=== PATIENT | female | born 1975 | race Caucasian/White ===

== ENCOUNTER → 2018-09-06 | Outpatient (CLI) | payer OTHER ==
[~2018-09-06] MED LIST: ACET500; ALBU90OI INH; ALBU90OI61 INH; AXERT; BENZ100A PO; BUPR150T2 PO; CEPH500 PO; CLAR500 PO; CLON1 PO; CLON2 PO; CYCL10 PO; DIVA500ER PO; DOCU100 PO; ERYT.5TO OU; HYDACE5 PO; HYDCOR2.5A PR; IBUP600 PO; KETO.5OPSO RIGHTEYE; MULVITMINE; NAPR500 PO; NAPR500EC PO; NAPR550 PO; OXYACE5T PO; OXYB5 PO; Omeprazole20 M1; Omeprazole20 M1 PO; PENVK500 PO; PROACE100 PO; Pepcid40 MG PO; Prednisone20 MG PO; QUET200 PO; RXPROACE PO; SEROQUEL PO; SERT100; SULTRIDS PO; TRAM50 PO; ZIPR60 PO; [UNRECOGNIZED DRUG - REMARK]; [UNRECOGNIZED DRUG - REMARK]
[2018-09-08 15:08] LABS: HPV 16 Negative (Negative); HPV 18 Negative (Negative); HPV OTHER HR TYPES Negative (Negative)
== END | disposition home or self-care (01) ==
LOC: LAB 16:19 → LAB SHORT 16:19
PROVIDERS: Obstetrics & Gynecology
DX: Z01.419 Encounter for gynecological examination (general) (routine) without abnormal findings (principal)
CPT/HCPCS: 87624; G0123

== ENCOUNTER → 2020-11-04 | Outpatient (CLI) | payer BC, OTHER ==
[2020-11-04 13:33] LABS: BASOPHILS ABSOLUTE AUTO 0.04 K/mm3 (0.00-0.23); BASOPHILS PERCENT AUTO 1 % (0-2); EOSINOPHILS ABSOLUTE AUTO 0.62 K/mm3 (0.00-0.68); EOSINOPHILS PERCENT AUTO 10 % (0-6); Hematocrit 39.4 % (33.0-51.0); Hemoglobin 13.2 g/dL (11.5-16.0); IMMATURE GRAN ABSOLUTE AUTO 0.01 K/mm3 (0.00-0.10); IMMATURE GRAN PERCENT AUTO 0 % (0-1); LYMPHOCYTES ABSOLUTE AUTO 2.43 K/mm3 (0.84-5.20); LYMPHOCYTES PERCENT AUTO 39 % (21-46); MONOCYTES ABSOLUTE AUTO 0.26 K/mm3 (0.16-1.47); MONOCYTES PERCENT AUTO 4 % (4-13); Mean Corpuscular HGB 30.8 pg (26.0-34.0); Mean Corpuscular HGB Conc 33.5 g/dL (31.5-36.5); Mean Corpuscular Volume 92 fL (80-100); Mean Platelet Volume 8.9 fL (9.1-12.4); NEUTROPHILS PERCENT AUTO 46 % (41-73); Platelet Count 274 K/mm3 (150-400); RDW Coefficient Variation 12.7 % (11.7-14.2); RDW Standard Deviation 42.6 fL (35.1-46.3); Red Blood Cell Count 4.29 M/mm3 (3.80-5.20); White Blood Cell Count 6.26 K/mm3 (4.00-11.30)
== END ==
LOC: LAB EV 13:30 → LAB SHORT 13:30
PROVIDERS: Physician Assistant
DX: K92.2 Gastrointestinal hemorrhage, unspecified (principal); Z91.038 Other insect allergy status
CPT/HCPCS: 85025

== ENCOUNTER 2022-02-03 05:51 | Day surgery (SDC) | payer OTHER ==
[2022-02-01 17:12] LABS: BASOPHILS ABSOLUTE AUTO 0.05 K/mm3 (0.00-0.23); BASOPHILS PERCENT AUTO 1 % (0-2); EOSINOPHILS ABSOLUTE AUTO 0.13 K/mm3 (0.00-0.68); EOSINOPHILS PERCENT AUTO 2 % (0-6); Hematocrit 41.1 % (33.0-51.0); Hemoglobin 13.1 g/dL (11.5-16.0); IMMATURE GRAN ABSOLUTE AUTO 0.02 K/mm3 (0.00-0.10); IMMATURE GRAN PERCENT AUTO 0 % (0-1); LYMPHOCYTES PERCENT AUTO 38 % (21-46); MONOCYTES ABSOLUTE AUTO 0.57 K/mm3 (0.16-1.47); MONOCYTES PERCENT AUTO 7 % (4-13); Mean Corpuscular HGB Conc 31.9 g/dL (31.5-36.5); Mean Corpuscular Volume 91 fL (80-100); Mean Platelet Volume 9.5 fL (9.1-12.4); NEUTROPHILS PERCENT AUTO 53 % (41-73); Platelet Count 320 K/mm3 (150-400); RDW Coefficient Variation 13.6 % (11.7-14.2); RDW Standard Deviation 45.8 fL (35.1-46.3); Red Blood Cell Count 4.52 M/mm3 (3.80-5.20); White Blood Cell Count 7.97 K/mm3 (4.00-11.30)
[2022-02-01 18:06] LABS: Alanine Aminotransfer (ALT/SGP 13 U/L (12-78); Albumin, Blood 3.8 g/dL (3.4-5.0); Albumin/Globulin Ratio 1.1 (0.8-1.8); Alk Phos 58 U/L (50-136); Anion Gap 6 mmol/L (6-16); Aspartate Aminotrans (AST/SGOT 11 U/L (12-37); Beta HCG, Quantitative, Serum <1 mIU/mL (0-3); Bilirubin, Total 0.5 mg/dL (0.1-1.0); Blood Urea Nitrogen 15 mg/dL (8-24); Bun/Creatinine Ratio 19.5 (12.0-20.0); CO2, Blood 25 mmol/L (21-32); Calcium, Blood 9.3 mg/dL (8.5-10.1); Chloride, Blood 106 mmol/L (98-108); Creatinine, Blood 0.77 mg/dL (0.40-1.00); Globulin, Blood 3.5 g/dL (2.2-4.0); Glomerular Filtration Rate 97 (60-); Glucose, Blood 90 mg/dL (70-99); Potassium, Blood 3.5 mmol/L (3.5-5.5); Sodium, Blood 137 mmol/L (136-145); Total Protein, Blood 7.3 g/dL (6.4-8.2)
[~2022-02-03] VITALS: Ht 167.6 cm; Wt 58.3 kg
[2022-02-03] MEDS ORDERED: QUET200 PO (06:51)
--- NOTE | 2022-02-03 09:08 | NUR ---
02/03/22 0908 Willy Beckman IRRIGATED WITH 400CC OF NAC[facility] DURING CASE BY NGUYEN
--- NOTE | 2022-02-03 12:23 | NUR ---
PT ARRIVED TO THE UNIT AT APPROXIMATELY 1115. SHE IS DROWSY BUT AWAKENS TO ANSWER QUESTIONS. PT ALSO REPORTS NAUSEA. AFTER PT WAS SETTLED IN THE BED SHE FELL ASLEEP AND APPEARS TO BE RESTING PEACEFULLY. PT TOLERATING SIPS OF CLEARS. ABD DRESSINGS CLEAN AND DRY, BANDAID PRESENT OVER ONE LAP SITE, NO DRAINAGE. WILL CONTINUE TO MONITOR.
--- NOTE | 2022-02-03 19:14 | NUR ---
NAUSEA PT HAS CONTINUED TO HAVE NAUSEA AND VOMITING POST-OP, DESPITE USE OF ZOFRAN AND PHENERGAN. SHE ATTEMPTED SIPS AND CHIPS BUT VOMITS AFTER ANY PO INTAKE. PT ALSO ATTEMPTED TO EAT BREAD WITH DINNE AND VOMITED. DR. NEWMAN NOTIFIED AND ORDERS WERE PROVIDED. WILL CONTINUE TO MONITOR UNTIL REPORT TO NOC RN.
--- NOTE | 2022-02-03 19:51 | NUR ---
SHIFT SUMMARY PT IS POD#0 FROM [facility] WITH DR. NEWMAN. PT HAS CONTINUED TO HAVE NAUSEA AND VOMITING POST OP. PLAN FOR HER TO STAY OVERNIGHT UNLESS NAUSEA AND VOMITING RESOLVE. PAIN MANAGED WITH PO PAIN MEDICATION AND TORADOL. PT ABLE TO VOID AND AMBULATE. VSS. REPORT GIVEN TO STEPHANY RIVERA.
--- NOTE | 2022-02-04 15:47 | NUR ---
DISCHARGE SUMMARY PT A&OX4, VSS/RA, [place] PO, VOIDING WELL, AMB INDEPENDENTLY TO [facility], PAIN MANAGED WELL. DC INS PROVIDED, PT REP UNDERSTANDING THOSE INSTRUCTIONS, AND THAT PROMETHAZINE AT [facility] CALLED IN BY DR OFFICE, AND IF PT NEEDS ANYTHING FURTHER TO CALL OFFICE. 2 IVS DC'D. LEFT FLOOR VIA WC TO GO HOME WITH AND ALL PERSONAL POSSESSIONS INCLUDING DC PACKET.
== END 2022-02-04 15:41 | disposition home or self-care (01) ==
LOC: ORSCMMR 05:51 → ORD 07:30 → SURS 11:51 → ORSCMMR 02-04 15:41
PROVIDERS: Obstetrics & Gynecology
PROC: 0UT94ZZ Resection of Uterus, Percutaneous Endoscopic Approach (ICD-10-PCS; principal; 2022-02-03 07:30)
PROC: 0UT74ZZ Resection of Bilateral Fallopian Tubes, Percutaneous Endoscopic Approach (ICD-10-PCS; principal; 2022-02-03 07:30)
PROC: 8E0W4CZ Robotic Assisted Procedure of Trunk Region, Percutaneous Endoscopic Approach (ICD-10-PCS; principal; 2022-02-03 07:30)
DX: N92.0 Excessive and frequent menstruation with regular cycle (principal); N88.8 Other specified noninflammatory disorders of cervix uteri; N80.0 Endometriosis of uterus; D25.0 Submucous leiomyoma of uterus; N81.2 Incomplete uterovaginal prolapse; N94.6 Dysmenorrhea, unspecified; N94.10 Unspecified dyspareunia; I10 Essential (primary) hypertension; Z87.891 Personal history of nicotine dependence; J45.909 Unspecified asthma, uncomplicated; F41.8 Other specified anxiety disorders; Z79.899 Other long term (current) drug therapy
CPT/HCPCS: 58571; S2900; 36415; 80053; 84702; 85025; 86850; 86900; 86901; 88307; A9270; J0690; J1100; J1170; J1885; J2250; J2405; J2550; J2704; J3010; J7030; J7120

== ENCOUNTER 2022-06-24 23:08 | Emergency (ER) | payer OTHER ==
[~2022-06-24] VITALS: Ht 167.6 cm; Wt 59.0 kg
[2022-06-25 00:10] LABS: Calcium, Ionized (POC) 1.17 mmol/L (1.10-1.46); Chloride (POC) 107 mmol/L (98-108); Creatinine (POC) 1.1 mg/dL (0.6-1.0); Glucose (ISTAT POC) 75 mg/dL (70-99); Hemoglobin (POC) 13.9 g/dL (12.0-16.0); Potassium (POC) 3.6 mmol/L (3.5-5.5); Sodium (POC) 141 mmol/L (135-148); Total CO2 (POC) 23 mmol/L (21-32)
[2022-06-25] MEDS ORDERED: PRAHYD1AEA PR (00:10)
== END 2022-06-25 00:25 | disposition home or self-care (01) ==
LOC: ER 23:08
PROVIDERS: Emergency Medicine
DX: K64.9 Unspecified hemorrhoids (principal); Z87.891 Personal history of nicotine dependence; Z91.030 Bee allergy status; Z79.899 Other long term (current) drug therapy
CPT/HCPCS: 80047; 85014

== ENCOUNTER 2022-08-18 13:07 | Day surgery (SDC) | payer BC, OTHER ==
[~2022-08-18] VITALS: Ht 167.6 cm; Wt 66.9 kg
[~2022-08-18 13:07] MED LIST changes: +AMPDEX5 PO; +PRAHYD1AEA PR
--- NOTE | 2022-08-18 17:15 | NUR ---
Discharge instructions reviewed with patient. Patient verbalizes understanding. Copy given to patient to take home. Dressing to procedure site clean, dry, intact with no visible drainage, swelling, erythema or bruising noted. PT ABLE TO FEEL AND WIGGLE TOES IN R FOOT, TOES ARE WARM PINK AND DRY. Discharged via wheelchair to private car for ride home. NO C/O NAUSEA, PT GIVEN PO PAIN MEDICATION FOR MODERATE PAIN. PT TOLERATED WI FLUIDS AND FOOD PRIOR TO DISCHARGE.
== END 2022-08-18 17:15 | disposition home or self-care (01) ==
LOC: ORSCMMR 13:07 → ORD 14:45 → ORSCMMR 14:45
PROVIDERS: Podiatrist Foot & Ankle Surgery
PROC: 0QSJ04Z Reposition Right Fibula with Internal Fixation Device, Open Approach (ICD-10-PCS; principal; 2022-08-18 14:45)
DX: S82.61XA Displaced fracture of lateral malleolus of right fibula, initial encounter for closed fracture (principal); W18.09XA Striking against other object with subsequent fall, initial encounter; J45.909 Unspecified asthma, uncomplicated; Z79.899 Other long term (current) drug therapy; F41.8 Other specified anxiety disorders
CPT/HCPCS: A9270; C1713; J0690; J1100; J1170; J2250; J2405; J2704; J2765; J2795; J3010; J7120

== ENCOUNTER 2023-05-31 13:21 | Emergency (ER) | payer BC, OTHER ==
[~2023-05-31] VITALS: Ht 165.1 cm; Wt 52.2 kg
[~2023-05-31 13:21] MED LIST changes: +CYMBALTA20 M2 PO
[2023-05-31 13:56] VITALS: BP 135/91
[2023-05-31 14:27] LABS: BASOPHILS ABSOLUTE AUTO 0.06 K/mm3 (0.00-0.23); BASOPHILS PERCENT AUTO 1 % (0-2); EOSINOPHILS ABSOLUTE AUTO 0.07 K/mm3 (0.00-0.68); EOSINOPHILS PERCENT AUTO 1 % (0-6); Hematocrit 39.5 % (33.0-51.0); Hemoglobin 13.5 g/dL (11.5-16.0); IMMATURE GRAN ABSOLUTE AUTO 0.03 K/mm3 (0.00-0.10); IMMATURE GRAN PERCENT AUTO 0 % (0-1); LYMPHOCYTES ABSOLUTE AUTO 2.11 K/mm3 (0.84-5.20); LYMPHOCYTES PERCENT AUTO 29 % (21-46); MONOCYTES ABSOLUTE AUTO 0.32 K/mm3 (0.16-1.47); MONOCYTES PERCENT AUTO 4 % (4-13); Mean Corpuscular HGB 32.6 pg (26.0-34.0); Mean Corpuscular HGB Conc 34.2 g/dL (31.5-36.5); Mean Corpuscular Volume 95 fL (80-100); Mean Platelet Volume 8.9 fL (9.1-12.4); NEUTROPHILS PERCENT AUTO 65 % (41-73); Platelet Count 293 K/mm3 (150-400); RDW Coefficient Variation 15.3 % (11.7-14.2); RDW Standard Deviation 53.5 fL (35.1-46.3); Red Blood Cell Count 4.14 M/mm3 (3.80-5.20); White Blood Cell Count 7.29 K/mm3 (4.00-11.30)
[2023-05-31 15:03] LABS: Albumin, Blood 3.6 g/dL (3.4-5.0); Albumin/Globulin Ratio 0.9 (0.8-1.8); Bilirubin, Total 0.2 mg/dL (0.1-1.0); Bun/Creatinine Ratio 10.7 (12.0-20.0); Calcium, Blood 8.9 mg/dL (8.5-10.1); Creatinine, Blood 0.75 mg/dL (0.40-1.00); Globulin, Blood 4.2 g/dL (2.2-4.0); Potassium, Blood 3.8 mmol/L (3.5-5.5); Total Protein, Blood 7.8 g/dL (6.4-8.2)
== END 2023-05-31 15:11 | disposition left against medical advice (07) ==
LOC: ER 13:21
PROVIDERS: Physician Assistant
DX: K62.5 Hemorrhage of anus and rectum (principal); Z53.21 Procedure and treatment not carried out due to patient leaving prior to being seen by health care provider
CPT/HCPCS: 80053; 85025; 99283

== ENCOUNTER 2023-09-04 15:59 | Emergency (ER) | payer OTHER ==
[~2023-09-04] VITALS: Ht 165.1 cm; Wt 59.0 kg
[2023-09-04 16:04] VITALS: BP 159/99
== END 2023-09-04 18:27 | disposition home or self-care (01) ==
LOC: ER 15:59
DX: S50.12XA Contusion of left forearm, initial encounter (principal); S50.11XA Contusion of right forearm, initial encounter; S80.12XA Contusion of left lower leg, initial encounter; S80.11XA Contusion of right lower leg, initial encounter; M25.511 Pain in right shoulder; Y04.8XXA Assault by other bodily force, initial encounter; Z91.030 Bee allergy status; Z88.8 Allergy status to other drugs, medicaments and biological substances; Z79.899 Other long term (current) drug therapy; J45.909 Unspecified asthma, uncomplicated; Z87.891 Personal history of nicotine dependence
CPT/HCPCS: 73030; 96372; 99283-25; A9270; J1885

== ENCOUNTER 2024-11-30 21:15 | Emergency (ER) | payer OTHER ==
[~2024-11-30] VITALS: Ht 165.1 cm; Wt 72.6 kg
[2024-11-30 21:44] LABS: BASOPHILS ABSOLUTE AUTO 0.08 K/mm3 (0.00-0.23); BASOPHILS PERCENT AUTO 1 % (0-2); EOSINOPHILS ABSOLUTE AUTO 0.31 K/mm3 (0.00-0.68); EOSINOPHILS PERCENT AUTO 4 % (0-6); Hematocrit 40.4 % (33.0-51.0); Hemoglobin 13.7 g/dL (11.5-16.0); IMMATURE GRAN ABSOLUTE AUTO 0.02 K/mm3 (0.00-0.10); IMMATURE GRAN PERCENT AUTO 0 % (0-1); LYMPHOCYTES ABSOLUTE AUTO 3.42 K/mm3 (0.84-5.20); LYMPHOCYTES PERCENT AUTO 42 % (21-46); MONOCYTES ABSOLUTE AUTO 0.66 K/mm3 (0.16-1.47); MONOCYTES PERCENT AUTO 8 % (4-13); Mean Corpuscular HGB 30.7 pg (26.0-34.0); Mean Corpuscular HGB Conc 33.9 g/dL (31.5-36.5); Mean Corpuscular Volume 91 fL (80-100); Mean Platelet Volume 8.8 fL (9.1-12.4); NEUTROPHILS PERCENT AUTO 45 % (41-73); Platelet Count 365 K/mm3 (150-400); RDW Coefficient Variation 14.2 % (11.7-14.2); RDW Standard Deviation 46.5 fL (35.1-46.3); Red Blood Cell Count 4.46 M/mm3 (3.80-5.20); White Blood Cell Count 8.09 K/mm3 (4.00-11.30)
[2024-11-30 22:08] LABS: Albumin, Blood 3.6 g/dL (3.4-5.0); Bilirubin, Total 0.2 mg/dL (0.1-1.0); Bun/Creatinine Ratio 14.4 (12.0-20.0); Calcium, Blood 8.6 mg/dL (8.5-10.1); Creatinine, Blood 0.7 mg/dL (0.40-1.00); Globulin, Blood 3.6 g/dL (2.2-4.0); Total Protein, Blood 7.2 g/dL (6.4-8.2)
[2024-11-30 22:16] LABS: International Normalized Ratio 0.88; Prothrombin Time Results 9.5 Sec (9.7-11.5)
[2024-12-01 01:55] VITALS: BP 130/74
== END 2024-12-01 02:03 | disposition home or self-care (01) ==
LOC: ER 21:15
PROVIDERS: Student in an Organized Health Care Education/Training Program
DX: K92.1 Melena (principal); K64.4 Residual hemorrhoidal skin tags; Z87.891 Personal history of nicotine dependence; Z88.0 Allergy status to penicillin; Z91.030 Bee allergy status; Z79.899 Other long term (current) drug therapy; J45.909 Unspecified asthma, uncomplicated
CPT/HCPCS: 80053; 82272; 85025; 85610; 85730; 86850; 86900; 86901; 99283

== ENCOUNTER → 2025-08-05 | Outpatient (CLI) | payer BC, OTHER ==
[~2025-08-05] MED LIST changes: +Cyclobenzaprine5 MG PO
== END ==
LOC: LAB 05:40 → LAB SHORT 05:40 → EDSTATUS 11:23
DX: D44.7 Neoplasm of uncertain behavior of aortic body and other paraganglia (principal)
CPT/HCPCS: 81050